=== PATIENT | female | born 1980 | race Caucasian/White ===

== ENCOUNTER 2016-10-04 06:29 | Emergency (ER) | payer SELFPAY ==
[2016-10-04 06:41] VITALS: TEMP 97.6; BMI 36.8
--- NOTE | 2016-10-04 06:51 | EDPRACDOC ---
- General Information Chief Complaint: Headache Stated Complaint: HEADACHE Time Seen by Provider: 10/04/16 06:44 Information Source: Patient Mode Of Arrival: Car Home Medications: Home Medications No Home Medications 10/04/16 Allergies/Adverse Reactions: Allergies Allergy/AdvReac Type Severity Reaction Status Date / Time Penicillins Allergy Anaphylaxis Verified 10/04/16 06:41 * - History of Present Illness Onset: 0230 this morning HPI: HEADACHE FOR 3 DAYS. B/L EAR PAIN FOR 3 DAYS. NAUSEA. PAIN 8/10. HOT/ COLD SPELLS THIS AM. THIS IS DIFFERENT THAN PT'S MIGRAINES. STARTS DULL, GRADUALLY WORSENS. ALEVE MILD RELIEF. ED Past Medical History - History Reviewed Yes Nurses notes reviewed and agree except as marked - Patient Medical History Psychological History: Denies: Depression Surgical History: Denies: Hysterectomy - Social Medical History Smoking Status: Heavy tobacco smoker (5 or more cigarettes/day or daily pipe/ cigar) EDM Review of Systems - Review of Systems ROS Negative Except as Marked: Yes All systems reviewed and were negative except as marked - Physical Exam Constitutional: Alert (Awake), No apparent distress Oriented to: Time, Person, Place Last recorded Vital Signs: Last Vital Signs Temp 97.6 F 10/04/16 06:35 Pulse 103 10/04/16 06:35 Resp 20 10/04/16 06:35 BP 132/82 10/04/16 06:35 Pulse Ox 100 10/04/16 06:35 Oxygen Pulse Oxygen Saturation 100 O2 Device Room Air Oxygen Flow Rate Fraction of Inspired Oxygen ( FIO2) - HEENT Head: Normal ( normocephalic) Eye Exam: Normal (PERRL, EOMI, Sclera white) Oropharynx: Normal (Pharynx:Moist without exudate,Gums-no swelling) Nose: No Symptoms Reported (septum midline) Neck: Normal (FROM, trachea at midline) - Respiratory/Cardiovascular Respiratory: Normal - CTA (BBS clear to auscultation without adventitious sounds ) Cardiovascular: Normal (RRR without murmur, gallop or rub) - GI Auscultation: Normal (NABS) Palpation: Normal (Soft,No rebound or guarding, non distended) Tenderness: Non tender Lancaster's Sign: Negative - Musculoskeletal Back: Normal (Non-Tender) Extremities: Normal (Normal tone, Pulses 2+ No cyanosis or edema, FROM) - Integumentary Skin: Normal, Warm, Dry Lymphatics: Normal (no adenopathy) - Neurologic Memory Impaired: Normal Motor Function: Normal (Normal tone, Pulses 2+ No cyanosis or edema, FROM) Cranial Nerve: Normal (CN II-X11 intact sensation, strength 5/5) Cerebellar: Normal Mood Description: Normal Perception: Normal - Departure Yes I personally saw and evaluated the patient. Disposition: Home Condition: Stable Final Diagnosis: Headache Education/Counseling Given To: Patient Education/Counseling Given Regarding: Diagnosis Referrals: None,No Provider [Primary Care Provider] - One Week Prescriptions: No Action No Home Medications 0 NA DIR #0 info
[2016-10-04] MEDS ORDERED: KETOROLAC TROMETHAMINE 60 MG/2 ML SDV IM ONE (06:53)
[2016-10-04] MEDS ORDERED: METOCLOPRAMIDE 10 MG/2 ML VIAL IM ONE (06:54)
[2016-10-04] MEDS ORDERED: DIPHENHYDRAMINE 50 MG/ML VIAL IM ONE (06:55)
[2016-10-04 07:14] LABS: LEUKOCYTES/URINE NEG (NEGATIVE); NITRITE/URINE NEG (NEGATIVE); URINE OCCULT BLOOD NEG (NEG/TRACE); WBC/URINE 0-2 (0-5)
[2016-10-04 08:24] VITALS: BP 122/66; PULSE 79
== END 2016-10-04 07:30 | disposition home or self-care (01) ==
LOC: ED 06:29
DX: R51 Headache (principal)
CPT/HCPCS: 81001; 81025; 96372; 99283; J1200; J1885; J2765